=== PATIENT | female | born 1990 | race Two or more races ===

== ENCOUNTER → 2017-07-21 | Outpatient (REF) | payer OTHER ==
[2017-07-21 13:39] LABS: SLIDE REVIEW Report; SOURCE PERIPHERAL SMEAR
[2017-07-21 13:39] LABS: C REACTIVE PROTEIN QUANTITATIV < 0.30 MG/DL (0.00-0.30)
[2017-07-21 13:40] LABS: REASON FOR REVIEW WBC/LEUKEMIA/BLAST
[2017-07-21 13:51] LABS: ERYTHROCYTE SEDIMENTATION RATE 269 mm/hr (0-20)
[2017-07-23 00:08] LABS: LEUKOCYTE ALKALINE PHOSPHATASE 74 (25-130)
== END ==
LOC: M LAB REF 12:59
DX: D72.829 Elevated white blood cell count, unspecified (principal)
CPT/HCPCS: 86140